=== PATIENT | female | born 1970 | race Two or more races ===

== ENCOUNTER 2016-08-09 23:56 | Emergency (ER) | payer SELFPAY ==
[~2016-08-09] VITALS: Ht 144.8 cm; Wt 66.2 kg
[2016-08-10] MEDS ORDERED: IV NS 0.9% 1,000 ML BAG IV ONE (01:00)
[2016-08-10] MEDS ORDERED: LORAZEPAM INJ 2 MG/ML VIAL IVP ONE (01:00)
[2016-08-10 01:18] LABS: BASOPHILS % (AUTO) 0.3 % (0.0-2.0); DIFF TOTAL % 100 %; EOSINOPHILS # (AUTO) 0.4 /CMM (0.0-0.7); EOSINOPHILS % (AUTO) 2.5 % (0.0-6.0); HEMATOCRIT 39 % (33-45); HEMOGLOBIN 12.9 g/dL (11.5-14.8); LYMPHOCYTES % (AUTO) 13.4 % (20.0-44.0); MEAN CORPUSCULAR HEMOGLOBIN 29 PG (26.0-33.0); MEAN CORPUSCULAR HGB CONC 33 g/dl (31.0-36.0); MEAN CORPUSCULAR VOLUME 88 fL (82-100); MONOCYTES # (AUTO) 1.2 /CMM (0.1-1.30); MONOCYTES % (AUTO) 8.3 % (2.0-12.0); NEUTROPHILS # (AUTO) 11.3 /CMM (1.8-8.9); NEUTROPHILS % (AUTO) 75.5 % (43.0-81.0); PLATELET COUNT (AUTO) 411 /CMM (150-450); RED BLOOD CELL COUNT(AUTO) 4.45 MIL/uL (4.0-5.2)
[2016-08-10] MEDS ORDERED: IV NS 0.9% 1,000 ML ONE (01:22)
[2016-08-10] MEDS ORDERED: IV SET PRIMARY 1 EA INFUS.SET MC ONE (01:22)
[2016-08-10 01:31] LABS: KETONES,URINE NEGATIVE (NEGATIVE); LEUKOCYTE ESTERASE ,URINE NEGATIVE (NEGATIVE)
[2016-08-10 01:32] LABS: CARBON DIOXIDE 22 mmol/L (21-32); CHLORIDE 107 mmol/L (98-107); POTASSIUM 4.3 mmol/L (3.5-5.1); SODIUM SERUM 139 mmol/L (136-145)
[2016-08-10 01:33] LABS: ANION GAP 14 (5-14); CANNABINOID, URINE NEGATIVE (NEGATIVE); CREATININE 0.8 mg/dL (0.6-1.3); GFR 78 mL/min (>60); GLUCOSE 108 mg/dL (74-106); PHENCYCLIDINE SCREEN,URINE NEGATIVE (NEGATIVE); UREA NITROGEN, BLOOD 18 mg/dL (7-18)
[2016-08-10] MEDS ORDERED: LORAZEPAM INJ 2 MG/ML VIAL ONE (01:35)
[2016-08-10 01:36] LABS: PREGNANCY TEST URINE QUAL NEGATIVE (NEGATIVE)
[2016-08-10 01:37] LABS: ADD UA MICROSCOPIC YES
[2016-08-10 01:41] LABS: BILIRUBIN,DIRECT 0.1 mg/dL (0.0-0.2); BILIRUBIN,TOTAL 0.4 mg/dL (0.2-1.0); INDIRECT BILIRUBIN 0.3 mg/dL (0.0-1.1)
[2016-08-10 01:42] LABS: ACETAMINOPHEN 0 ug/ml (10-30); ALANINE AMINOTRANSFERASE 22 U/L (12-78); ALBUMIN 3.7 g/dL (3.4-5.0); ASPARTATE AMINOTRANSFERASE 20 U/L (15-37); SALICYLATE 1.7 mg/dL (2.8-20.0); THYROID STIMULATING HORMONE 0.461 uIU/mL (0.358-3.74); TOTAL PROTEIN, SERUM 7.4 g/dL (6.4-8.2)
[2016-08-10 01:44] LABS: ADD URINE CULTURE NO; WBC,URINE 0-2 /HPF (0-3)
[2016-08-10 01:45] LABS: MUCUS,URINE Rare /LPF (None Seen)
[2016-08-10] MEDS ORDERED: HALOPERIDOL LACTATE INJ 5 MG/ML VIAL ONE (01:54)
[2016-08-10] MEDS ORDERED: HALOPERIDOL LACTATE INJ 5 MG/ML VIAL IV ONE (02:00)
[2016-08-10 11:40] VITALS: BP 111/77
== END 2016-08-10 20:30 ==
LOC: ER 08-10 00:02
DX: F15.90 Other stimulant use, unspecified, uncomplicated (principal); F32.9 Major depressive disorder, single episode, unspecified; E03.9 Hypothyroidism, unspecified
CPT/HCPCS: 36415; 51702; 71010; 80048; 80076; 80305; 80329; 81001; 84443; 84703; 85025; 93005; 96361; 96374; 99285; A4606; G0480 ×2; J1630; J2060; J7030; Z7610; 81000-TC; G6039-TC